=== PATIENT | male | born 1985 | race African-American/Black ===

== ENCOUNTER 2016-10-10 22:04 | Emergency (ER) | payer SELFPAY ==
[2016-10-11] MEDS ORDERED: DIPH/PERTUSS(ACELL)/TETANUS VAC/PF 0.5 ML SYR (>=10YO) IM ONE (00:48)
[2016-10-11] MEDS ORDERED: ACETAMINOPHEN 325 MG TABLET PO ONE (00:48)
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
[2016-10-11] MEDS ORDERED: LIDOCAINE 2% INJ (20 MG/ML) 20 ML MDV INJ ONE (01:11)
[2016-10-11] MEDS ORDERED: LIDOCAINE 1% INJ-PF (10 MG/ML) 30 ML SDV INJ ONE (01:12)
[2016-10-11] MEDS ORDERED: LIDOCAINE 1% INJ-PF (10 MG/ML) 30 ML SDV ONE (01:13)
[2016-10-11 01:43] VITALS: BP 150/93
== END 2016-10-11 01:45 | disposition home or self-care (01) ==
LOC: ER 22:04
PROC: 0HQ0XZZ Repair Scalp Skin, External Approach (ICD-10-PCS; principal; 2016-10-10)
DX: S01.01XA Laceration without foreign body of scalp, initial encounter (principal); S09.90XA Unspecified injury of head, initial encounter; F17.200 Nicotine dependence, unspecified, uncomplicated; Y00.XXXA Assault by blunt object, initial encounter; Z23 Encounter for immunization
CPT/HCPCS: 99283; 90471; 70450; 90715; 12002; J3490

== ENCOUNTER 2019-09-12 12:57 | Emergency (ER) | payer SELFPAY ==
[2019-09-12 13:47] VITALS: BP 141/72
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
== END 2019-09-12 14:15 | disposition home or self-care (01) ==
LOC: ER 12:57
DX: S01.91XD Laceration without foreign body of unspecified part of head, subsequent encounter (principal); X58.XXXD Exposure to other specified factors, subsequent encounter; F17.200 Nicotine dependence, unspecified, uncomplicated
CPT/HCPCS: 99281